=== PATIENT | female | born 1975 | race Two or more races ===

== ENCOUNTER 2019-09-27 18:31 | Emergency (ER) | payer SELFPAY ==
[~2019-09-27] VITALS: Ht 152.4 cm; Wt 74.4 kg
[2019-09-27 18:49] VITALS: Ht 152.4 cm; Wt 74.4 kg
[2019-09-27 20:34] VITALS: BP 114/75
== END 2019-09-27 20:34 | disposition home or self-care (01) ==
LOC: ED 18:31
DX: U07.1 COVID-19 (principal); J12.89 Other viral pneumonia
CPT/HCPCS: U0003-CS